=== PATIENT | male | born 1955 | race Caucasian/White ===

== ENCOUNTER 2017-05-17 09:09 | Day surgery (SDC) | payer OTHER ==
[2017-05-16 13:17] VITALS: BMI 30.7
--- NOTE | 2017-05-17 07:34 | HP ---
HISTORY OF PRESENT ILLNESS: Mr. Saavedra is a patient known to us for prior ACDF x2, now presents with c ontinued struggles with axial neck pain despite significant efforts with PT and other conservative th erapies. He is yet to yield any significant relief whatsoever and has not had a repeat CT scan of th e cervical spine revealing multilevel foraminal stenosis particularly to the right, which matches his neck pains between C2 through C5 move forward with surgical intervention given his extensive a nd exhaustive conservative treatments. PAST MEDICAL HISTORY: Hypertension, arthritis. CURRENT MEDICATIONS: Gabapentin, tramadol, Lawrence, lisinopril, statin, unspecified. PAST SURGICAL HISTORY: Four cervical neck surgeries including 2 anterior cervical diskectomy and fus ion. ALLERGIES: No known drug allergies. ASSESSMENT: Neck pain. PLAN: Dr. Dewey met with the patient, reviewed imaging and advocated for a right-sided C2 through C5 foraminotomies. He explained to the patient the risks, benefits, and alternatives to the procedure. The patient expressed understanding and would like to move forward surgery as discussed. The patie nt is mentally competent and capable of making medical decisions for himself, we will move forward [facility] as planned. Didier Ramos PA-C dictating for Dr. Dewey.
[2017-05-17 10:22] LABS: Hemoglobin 15.3 g/dL (14.0-18.0); Mean Corpuscular HGB CONC 33.4 g/dL (32.0-36.0); Mean Corpuscular Hemoglobin 29.9 pg (27.0-31.0); Mean Corpuscular Volume 89.6 fl (80.0-94.0); Mean Platelet Volume 7.8 fL (7.4-10.4); Platelet Count 287 thou/uL (130-400); RBC Distribution Width 12.2 % (11.5-14.5); Red Blood Cell (RBC) Count 5.13 mill/uL (4.70-6.10)
[2017-05-17 10:36] LABS: Anion Gap 8 mmol/L (10-20); BUN (Urea Nitrogen) 17 mg/dL (8.4-25.7); Calc. Creatinine Clearance 100 mL/min (70-130); Calcium 9.3 mg/dL (7.8-10.44); Carbon Dioxide 27 mmol/L (22-29); Chloride 107 mmol/L (98-107); Estimated GFR-MDRD 67; Glucose 92 mg/dL (70-105); Potassium 4.1 mmol/L (3.5-5.1); Sodium 138 mmol/L (136-145)
[2017-05-17] MEDS ORDERED: CEFAZOLIN/Water 2 GM/20 ML SYRINGE ONE ×2 (11:09→16:40)
[2017-05-17] MEDS ORDERED: Bupivacaine HCl 0.5%/Epinephrine 1:200,000/PF 30 ml Vial ONE (12:48)
[2017-05-17] MEDS ORDERED: Fentanyl 100 MCG/2 ML VIAL ONE ×2 (13:37→15:37)
[2017-05-17] MEDS ORDERED: Bacitracin Zinc Ointment 30 gm TUBE ONE (14:42)
[2017-05-17] MEDS ORDERED: Lidocaine 1% PF 5 ML VIAL ONE (15:21)
[2017-05-17] MEDS ORDERED: PROPOFOL 200 MG/20 ML VIAL ONE (15:21)
[2017-05-17] MEDS ORDERED: Glycopyrrolate 0.2 MG/ML 5 ML SYRINGE ONE (15:21)
[2017-05-17] MEDS ORDERED: Dexamethasone 20 MG/5 ML VIAL ONE (15:21)
[2017-05-17] MEDS ORDERED: ePHEDrine/0.9% NaCl/PF SYRINGE 50 mg/10 ml ONE (15:21)
[2017-05-17] MEDS ORDERED: Cyclobenzaprine 10 MG TAB ONE (16:01)
[2017-05-17] MEDS ORDERED: HYDROcodone/Acetaminophen 7.5/325 mg Tablet ONE (17:22)
--- NOTE | 2017-05-18 14:19 | OP ---
DATE OF PROCEDURE: 05/17/2017 SURGEON: Sanford Dewey M.D. SANDER AND POLISHER: Didier Ramos PA-C INDICATION: Pain. DIAGNOSIS: Cervical radiculopathy. PROCEDURE PERFORMED: Posterior cervical foraminotomy C2 through C5 on the right. ANESTHESIA: General. TECHNIQUE: The patient was brought into the operating room and placed under general anesthesia. He was flipped from a supine to prone position on the operating room table. A linear incision was plann ed spanning C2 through C5. After prepping and draping and after an appropriate pause, the incision w as created. The soft tissues were swept right of midline. A self-retaining retractor was put in the wound for optimal exposure. A high-speed cutting drill bit as well as 1 and 2 mm Kerrisons used to perform foraminotomies over the exiting nerve roots between C2 through C5. After decompressing these segments, the wound was irrigated. Hemostasis was maintained throughout. The wound was then closed in anatomic layers and a pressure dressing was applied. There were no known procedural complication s.
== END 2017-05-17 18:52 | disposition home or self-care (01) ==
LOC: SDC 09:09
PROVIDERS: ATTEND Neurological Surgery
PROC: 01N10ZZ Release Cervical Nerve, Open Approach (ICD-10-PCS; principal; 2017-05-17)
DX: M54.12 Radiculopathy, cervical region (principal); I10 Essential (primary) hypertension; M19.90 Unspecified osteoarthritis, unspecified site; E78.5 Hyperlipidemia, unspecified; J45.909 Unspecified asthma, uncomplicated; Z79.82 Long term (current) use of aspirin; Z79.891 Long term (current) use of opiate analgesic; Z79.899 Other long term (current) drug therapy; Z98.1 Arthrodesis status
CPT/HCPCS: 76001; 80048; 85027; 96374; J0670; J1100; J2001; J2704; J3010

== ENCOUNTER 2018-06-14 12:35 | Outpatient (CLI) | payer OTHER ==
--- NOTE | 2018-06-14 13:05 | RAD ---
LUMBAR SPINE THREE VIEWS: HISTORY: Lumbar radiculopathy. Back and right posterior thigh pain. FINDINGS: Five lumbar type vertebral bodies. In the neutral position, 3.6 mm of retrolisthesis of L3 upon L4. Retrolisthesis resolves upon flexion. Upon extension, 3.9 mm of retrolisthesis of L3 upon L4. In the neutral position, approximately 1 mm of anterolisthesis of L4 upon L5. Upon flexion, approxim ately 7 mm of anterolisthesis of L4 upon L5. Upon extension, spondylolisthesis resolves. There are hypertrophic changes in the posterior elements at L3, L4, and L5. No associated spondyloly sis. IMPRESSION: Spondylolisthesis, as described above. Greatest degree of motion is at the L4-L5 level, upon flexion . Transcribed Date/Time: 06/14/2018 1:05 PM
== END 2018-06-14 12:36 | disposition home or self-care (01) ==
LOC: TBSIIMAG 12:35
PROVIDERS: ATTEND Neurological Surgery
DX: M43.16 Spondylolisthesis, lumbar region (principal); M54.16 Radiculopathy, lumbar region
CPT/HCPCS: 72100

== ENCOUNTER 2018-08-17 05:56 | Day surgery (SDC) | payer OTHER ==
[2018-08-16 14:35] VITALS: BMI 30.5
--- NOTE | 2018-08-16 22:04 | HP ---
HISTORY OF PRESENT ILLNESS: Mr. Saavedra is a very pleasant 62-year-old man known to us for prior cervical surgery, who represents now with increasing lower back pain and right-sided partial S1 radiculopathies. On MRI scan, he has a mild grade 1 spondylolisthesis at L4-L5 with joint distraction and severe lateral recess stenosis bilaterally at this level. Motion films reveal significant instability at this level upon flexion and extension. He hopes to move forward to address this surgically. PAST MEDICAL HISTORY: Significant for hypertension and arthritis. CURRENT MEDICATIONS: 1. Gabapentin. 2. Tramadol. 3. Cartwright. 4. Lisinopril. 5. . PAST SURGICAL HISTORY: Five neck surgeries including to two ACDS. ALLERGIES: NO KNOWN DRUG ALLERGIES. ASSESSMENT: Lumbar back pain and radiculopathy with spondylolisthesis. PLAN: Dr. Dewey met with the patient, reviewed imaging and advocated for an L4-L5 decompression and fusion. He explained to the patient the risks, benefits, and alternatives to the procedure. The patient expressed understanding and elected to move forward with surgery as discussed. I do believe the patient is mentally competent and capable and is able to make medical decisions for himself. Job ID: [id number]
[2018-08-17] MEDS ORDERED: Bupivacaine HCl 0.5%/Epinephrine 1:200,000/PF 30 ml Vial ONE (06:22)
[2018-08-17] MEDS ORDERED: Thrombin 5000 UNITS/5 ML VIAL ONE (06:22)
[2018-08-17] MEDS ORDERED: Fentanyl 100 MCG/2 ML VIAL ONE ×2 (06:36→10:02)
[2018-08-17] MEDS ORDERED: Lidocaine 2% Jelly 5 ML TUBE ONE (06:51)
[2018-08-17 07:13] LABS: Anion Gap 10 mmol/L (10-20); BUN (Urea Nitrogen) 17 mg/dL (8.4-25.7); Calc. Creatinine Clearance 113 mL/min (70-130); Calcium 8.8 mg/dL (7.8-10.44); Carbon Dioxide 23 mmol/L (22-29); Chloride 109 mmol/L (98-107); Estimated GFR-MDRD 78; Glucose 94 mg/dL (70-105); Potassium 3.8 mmol/L (3.5-5.1); Sodium 138 mmol/L (136-145)
[2018-08-17 07:15] LABS: Hemoglobin 14.3 g/dL (14.0-18.0); Mean Corpuscular HGB CONC 32.9 g/dL (32.0-36.0); Mean Corpuscular Hemoglobin 29.1 pg (27.0-31.0); Mean Corpuscular Volume 88.5 fL (78.0-98.0); Platelet Count 257 thou/uL (130-400); RBC Distribution Width 12.1 % (11.5-14.5); Red Blood Cell (RBC) Count 4.92 mill/uL (4.70-6.10); White Blood Cell (WBC) Count 6.2 thou/uL (4.8-10.8)
[2018-08-17 07:30] LABS: Band 10 % (5-11); Eosinophils 4 % (0-10); Lymphocytes 34 % (21-51); MDiff Complete? YES; Metamyelocyte 1 % (0-0); Monocytes 6 % (0-10); Neutrophil 19 % (42-75); RBC Morphology Normal; Reactive Lymphocytes 25 % (0-10)
--- NOTE | 2018-08-17 10:05 | OP ---
DATE OF PROCEDURE: 08/17/2018 FOUNTAIN ATTENDANT: Didier Ramos PA-C INDICATION: Pain. DIAGNOSES: Lumbar spondylolisthesis with low back pain and lumbar radiculopathy. PROCEDURES PERFORMED: L4-L5 bilateral facetectomy, bilateral L4-L5 instrumented fusion, placement of allograft, and placement of autograft. ANESTHESIA: General. DESCRIPTION OF PROCEDURE: The patient was brought into the operating room, placed under general anesthesia. He was flipped from the supine to prone position on operating room table. A linear incision was planned over L4-L5. After prepping and draping and after an appropriate preoperative pause, the incision was created. The soft tissues were swept away from midline. Self-retaining retractors were placed in the wound for optimal exposure. After confirming the appropriate level with C-arm fluoroscopy, high-speed cutting drill bit as well as 3 and 4 mm Kerrisons used to perform facetectomies bilaterally at L4-L5. The lateral recesses and exiting nerve roots were well decompressed. With the aid of C-arm fluoroscopy, pedicle screws were placed. An intraoperative 3D CT scan was performed, which confirmed appropriate placement of hardware. Rods were then placed across the screw head and final tightened. Allograft and autograft material were placed in the lateral confines of the instrumentation construct. The wound was irrigated. Hemostasis was maintained throughout. The wound was then closed in anatomic layers and a pressure dressing was applied. There were no known procedural complications. Job ID: [id number]
[2018-08-17] MEDS ORDERED: HYDROcodone/Acetaminophen 5/325 mg Tablet ONE (10:56)
[2018-08-17] MEDS ORDERED: Ketorolac Tromethamine 30 MG/ML VIAL ONE (14:27)
[2018-08-17] MEDS ORDERED: ePHEDrine 50 MG/ML VIAL ONE (14:27)
[2018-08-17] MEDS ORDERED: Lidocaine 1% PF 5 ML VIAL ONE (14:27)
[2018-08-17] MEDS ORDERED: PROPOFOL 200 MG/20 ML VIAL ONE (14:27)
[2018-08-17] MEDS ORDERED: Rocuronium Bromide 10 MG/ML (10ML VIAL) ONE (14:27)
[2018-08-17] MEDS ORDERED: Ondansetron PF 4 MG/2 ML Vial ONE (14:27)
[2018-08-17] MEDS ORDERED: Glycopyrrolate 0.2 MG/ML 5 ML SYRINGE ONE (14:27)
[2018-08-17] MEDS ORDERED: Dexamethasone 20 MG/5 ML VIAL ONE (14:27)
--- NOTE | 2018-08-20 15:22 | EKG ---
Test Reason : PREOP Blood Pressure : / mmHG Vent. Rate : 053 BPM Atrial Rate : 053 BPM P-R Int : 178 ms QRS Dur : 092 ms QT Int : 440 ms P-R-T Axes : 000 014 030 degrees QTc Int : 412 ms Sinus bradycardia with Premature supraventricular complexes Otherwise normal ECG Confirmed by BRENTON SALAZAR ([id number]) on 08/20/2018 3:22:38 PM Referred By: ALTAF Confirmed By:BRENTON SALAZAR
== END 2018-08-17 11:40 | disposition home or self-care (01) ==
LOC: SDC 05:56
PROVIDERS: ATTEND Neurological Surgery
PROC: 0SG10AJ Fusion of 2 or more Lumbar Vertebral Joints with Interbody Fusion Device, Posterior Approach, Anterior Column, Open Approach (ICD-10-PCS; principal; 2018-08-17)
PROC: 0SG0071 Fusion of Lumbar Vertebral Joint with Autologous Tissue Substitute, Posterior Approach, Posterior Column, Open Approach (ICD-10-PCS; principal; 2018-08-17)
DX: M43.16 Spondylolisthesis, lumbar region (principal); M48.061 Spinal stenosis, lumbar region without neurogenic claudication; M54.16 Radiculopathy, lumbar region; I10 Essential (primary) hypertension; M19.90 Unspecified osteoarthritis, unspecified site; Z98.1 Arthrodesis status; Z79.82 Long term (current) use of aspirin; Z79.891 Long term (current) use of opiate analgesic; Z79.899 Other long term (current) drug therapy
CPT/HCPCS: 76000; 80048; 85025; 93005; 93010; C1713; J0131; J0670; J0690; J3010

== ENCOUNTER 2019-10-04 07:27 | Day surgery (SDC) | payer OTHER ==
[2019-10-02 10:55] VITALS: BMI 29.2
[2019-10-04] MEDS ORDERED: EPINEPHrine 1 MG/ML AMP ONE (08:18)
[2019-10-04] MEDS ORDERED: Bupivacaine PF 0.5% 30 ML VIAL ONE (08:18)
[2019-10-04] MEDS ORDERED: Thrombin 5000 UNITS/5 ML VIAL ONE (08:19)
[2019-10-04] MEDS ORDERED: Fentanyl 100 MCG/2 ML VIAL ONE ×3 (08:54→10:53)
[2019-10-04] MEDS ORDERED: Tamsulosin HCl 0.4 MG CAP ONE (10:53)
[2019-10-04] MEDS ORDERED: Rocuronium Bromide 10 MG/ML (10ML VIAL) ONE (11:36)
[2019-10-04] MEDS ORDERED: Dexamethasone 20 MG/5 ML VIAL ONE (11:36)
[2019-10-04] MEDS ORDERED: PROPOFOL 200 MG/20 ML VIAL ONE (11:36)
[2019-10-04] MEDS ORDERED: Ondansetron PF 4 MG/2 ML Vial ONE (11:36)
[2019-10-04] MEDS ORDERED: Glycopyrrolate 0.2 MG/ML 5 ML SYRINGE ONE (11:36)
[2019-10-04] MEDS ORDERED: EPHEDRINE 25 MG/5 ML SYRINGE ONE (11:36)
[2019-10-04] MEDS ORDERED: Ketorolac Tromethamine 30 MG/ML VIAL ONE (11:36)
[2019-10-04] MEDS ORDERED: Lidocaine 1% PF 5 ML VIAL ONE (11:36)
[2019-10-04] MEDS ORDERED: HYDROcodone/Acetaminophen 5/325 mg Tablet ONE (12:29)
--- NOTE | 2019-10-07 14:29 | OP ---
DATE OF PROCEDURE: 10/04/2019 LEGAL RECORDS MANAGER: Didier Ramos PA-C. INDICATION: Pain. DIAGNOSIS: Lumbar stenosis. PROCEDURES: Lumbar decompression at L3-4. ANESTHESIA: General. DESCRIPTION OF PROCEDURE: The patient was brought into the operating room and placed under general anesthesia. He was flipped from the supine to prone position on the operating room table. A linear incision was planned at the L3-4 segment which was adjacent to a prior fused site. After prepping and draping and after an appropriate preoperative pause, the incision was created. The soft tissues were swept away from midline. Self-retaining retractors were placed in the wound for optimal exposure. After confirming the appropriate level with C-arm fluoroscopy, high-speed cutting drill bit as well as 2, 3, and 4 mm Kerrisons were used to perform a laminectomy at the L3-4 interspace and to the lateral recesses and central canal are decompressed. The wound was then irrigated. Hemostasis was maintained throughout. The wound was then closed in anatomic layers and a pressure dressing was applied. There were no known procedural complications. Job ID: [id number]
--- NOTE | 2019-10-07 17:30 | EKG ---
Test Reason : PREOP Blood Pressure : / mmHG Vent. Rate : 053 BPM Atrial Rate : 053 BPM P-R Int : 178 ms QRS Dur : 090 ms QT Int : 436 ms P-R-T Axes : 008 030 049 degrees QTc Int : 409 ms Sinus bradycardia Otherwise normal ECG Confirmed by BEATRIZ BALLARD ([id number]) on 10/07/2019 5:29:59 PM Referred By: NATALIA Confirmed By:BEATRIZ BALLARD
== END 2019-10-04 13:05 | disposition home or self-care (01) ==
LOC: SDC 07:27
PROVIDERS: ATTEND Neurological Surgery
PROC: 01NB0ZZ Release Lumbar Nerve, Open Approach (ICD-10-PCS; principal; 2019-10-04)
DX: M48.061 Spinal stenosis, lumbar region without neurogenic claudication (principal); I10 Essential (primary) hypertension; E78.5 Hyperlipidemia, unspecified; J44.9 Chronic obstructive pulmonary disease, unspecified; Z79.01 Long term (current) use of anticoagulants; Z79.82 Long term (current) use of aspirin; Z79.899 Other long term (current) drug therapy; Z98.1 Arthrodesis status
CPT/HCPCS: 76000; 93005; 93010; J0171; J0690; J1100; J1885; J2405; J2704; J3010; S0020

== ENCOUNTER 2019-12-17 11:19 | Outpatient (CLI) | payer OTHER ==
--- NOTE | 2019-12-17 13:47 | RAD ---
LUMBAR SPINE THREE VIEWS: 12/17/19 INDICATION: History of radiculopathy to the right leg. COMPARISON: Prior exam dated 06/14/18. FINDINGS: Since the comparison examination, there has been interval performance of a posterolateral spinal fusi on of L4 to L5. There is grade I anterolisthesis of L4 on L5. The pedicle screws project in the expec lilly position. There is some mild peripedicular screw lucency involving the L5 level. The flexion exam ination and extension examination and neutral examination demonstrates stable grade I anterolisthesis at L4-5. There is stable retrolisthesis of L3 on L4. There is mild retrolisthesis of L2 on L3 that partially r educes with flexion and is somewhat accentuated with extension. There is some mild retrolisthesis of L1 on L2 with extension that reduces with neutral and flexion positioning. IMPRESSION: Interval postoperative changes of the lumbar spine. Some mild lucency surrounding the pedicle screws at L5. Early loosening cannot be entirely excluded. Continued radiographic follow-up is recommended. Grade I anterolisthesis of L4 on L5 does not appear appreciably changed from the comparison examinati on with no abnormal translational motion. The mild retrolisthesis of L3 on L4 is stable with flexion and extension. The mild retrolisthesis of L2 on L3 demonstrates some reduction with flexion and is somewhat accentua lilly with extension. There is retrolisthesis of L1 on L2 that is reduced on neutral and flexion positioning and somewhat a ccentuated with extension. POS: BH
== END 2019-12-17 11:20 | disposition home or self-care (01) ==
LOC: TBSIIMAG 11:19
PROVIDERS: ATTEND Neurological Surgery
DX: M54.5 Low back pain (principal); M43.16 Spondylolisthesis, lumbar region; R93.7 Abnormal findings on diagnostic imaging of other parts of musculoskeletal system; Z98.1 Arthrodesis status
CPT/HCPCS: 72100

== ENCOUNTER 2020-03-27 05:47 | Day surgery (SDC) | payer OTHER ==
[2020-03-25 15:19] VITALS: BMI 30.7
[2020-03-27] MEDS ORDERED: XYLOCAINE 2%-EPI 1:100,000 20 ML VIAL ONE (06:24)
[2020-03-27] MEDS ORDERED: Thrombin 5000 UNITS/5 ML VIAL ONE (06:24)
[2020-03-27] MEDS ORDERED: Bupivacaine PF 0.5% 30 ML VIAL ONE (06:24)
[2020-03-27] MEDS ORDERED: EPINEPHrine 1 MG/ML AMP ONE (06:24)
[2020-03-27 07:05] LABS: SARS-CoV-2 NAA Rapid Test Not Detected (NotDetected)
[2020-03-27] MEDS ORDERED: Fentanyl 100 MCG/2 ML VIAL ONE (07:06)
[2020-03-27] MEDS ORDERED: Ondansetron PF 4 MG/2 ML Vial ONE (09:32)
[2020-03-27] MEDS ORDERED: Rocuronium Bromide 10 MG/ML (10ML VIAL) ONE (09:32)
[2020-03-27] MEDS ORDERED: Lidocaine 1% PF 5 ML VIAL ONE (09:32)
[2020-03-27] MEDS ORDERED: ePHEDrine 50 MG/ML VIAL ONE (09:32)
[2020-03-27] MEDS ORDERED: Dexamethasone 20 MG/5 ML VIAL ONE (09:32)
[2020-03-27] MEDS ORDERED: Glycopyrrolate 0.2 MG/ML 5 ML SYRINGE ONE (09:32)
[2020-03-27] MEDS ORDERED: PROPOFOL 200 MG/20 ML VIAL ONE (09:32)
[2020-03-27] MEDS ORDERED: Ketorolac Tromethamine 30 MG/ML VIAL ONE (09:32)
[2020-03-27] MEDS ORDERED: Tamsulosin HCl 0.4 MG CAP ONE (10:46)
--- NOTE | 2020-03-27 10:46 | OP ---
DATE OF PROCEDURE: 03/27/2020 MOLD MAKING SUPERVISOR: Didier Ramos PA-C INDICATION: Pain. DIAGNOSIS: Lumbar spondylolisthesis. PROCEDURE PERFORMED: Exploration of fusion, removal of posterior segmental instrumentation, extension of fusion to L3, placement of new ceci across nonsegmental segments spanning L3 through L5, placement of allograft, placement of autograft, placement of cross-link. ANESTHESIA: General. DESCRIPTION OF PROCEDURE: The patient was brought into the operating room and placed under general anesthesia. He was flipped from the supine to prone position on the operating room table. A linear incision was planned at the location of a prior incision. After prepping and draping and after an appropriate preoperative pause, the incision was created. The soft tissues were swept away from midline. Self-retaining retractors were placed for optimal exposure. After confirming appropriate level with C-arm fluoroscopy, the facet joints at the L3-L4 interface were completely removed in order to decompress the lateral recesses as well as identify the L3 pedicles. Pedicle screws were placed at L3 bilaterally with the aid of intraoperative C-arm imaging. Intraoperative 3D CT scan was performed to confirm placement of hardware. Rods were then placed across all three screws on both sides and final tightened with set screws. Allograft and autograft material were placed within the lateral confines the instrumentation construct. The wound was then irrigated. Hemostasis was maintained throughout. The wound was then closed in anatomic layers, and a pressure dressing was applied. There were no known procedural complications. Job ID: [id number]
[2020-03-27] MEDS ORDERED: HYDROcodone/Acetaminophen 10/325 mg Tablet ONE (12:21)
[2020-03-27] MEDS ORDERED: Cyclobenzaprine 10 MG TAB ONE (12:21)
== END 2020-03-27 13:10 | disposition home or self-care (01) ==
LOC: SDC 05:47
PROVIDERS: ATTEND Neurological Surgery
PROC: 0ST20ZZ Resection of Lumbar Vertebral Disc, Open Approach (ICD-10-PCS; principal; 2020-03-27)
PROC: 0SG00AJ Fusion of Lumbar Vertebral Joint with Interbody Fusion Device, Posterior Approach, Anterior Column, Open Approach (ICD-10-PCS; principal; 2020-03-27)
DX: M43.16 Spondylolisthesis, lumbar region (principal); M51.36 Other intervertebral disc degeneration, lumbar region; I10 Essential (primary) hypertension; E78.5 Hyperlipidemia, unspecified; J44.9 Chronic obstructive pulmonary disease, unspecified; Z79.01 Long term (current) use of anticoagulants; Z79.82 Long term (current) use of aspirin; Z79.899 Other long term (current) drug therapy; Z20.822 Contact with and (suspected) exposure to COVID-19
CPT/HCPCS: 76000; C1713; C1768; J0171; J0690; J1100; J1885; J2405; J2704; J3010; J3490; S0020; U0002

== ENCOUNTER 2022-11-22 12:12 | Outpatient (CLI) | payer MEDICARE, OTHER | END 2022-11-22 12:13 | disposition home or self-care (01) | LOC: SCSCT 12:12 | PROVIDERS: ATTEND Neurological Surgery | DX: M47.22 Other spondylosis with radiculopathy, cervical region (principal); M48.02 Spinal stenosis, cervical region; Z98.1 Arthrodesis status | CPT/HCPCS: 72125 ==

== ENCOUNTER 2022-12-12 06:32 | Day surgery (SDC) | payer MEDICARE, OTHER ==
[2022-12-08 13:05] VITALS: BMI 30.7
[2022-12-12] MEDS ORDERED: Rocuronium Bromide 50 MG/5 ML VIAL ONE (07:56)
[2022-12-12] MEDS ORDERED: PROPOFOL 20 ML ONE (07:56)
[2022-12-12 08:01] LABS: #Basophils 0.1 thou/uL (0.0-0.2); #Eosinphils 0.2 thou/uL (0.0-0.7); #Monocytes 0.7 thou/uL (0.11-0.59); #Neutrophils 2.4 thou/uL (1.40-6.50); %Basophils 1.2 % (0.0-1.0); %Eosinophils 3.9 % (0.0-10.0); %Lymphocytes 43.4 % (21.0-51.0); %Monocytes 11.4 % (0.0-10.0); %Neutrophils 39.9 % (42.0-75.0); Hemoglobin 14.6 g/dL (14.0-18.0); Mean Corpuscular Hemoglobin 29.5 pg (27.0-31.0); Mean Corpuscular Volume 86.9 fl (78.0-98.0); Mean Platelet Volume 9.9 fL (7.4-10.4); Platelet Count 266 10x3/uL (130-400); RBC Distribution Width 12.7 % (11.5-14.5); Red Blood Cell (RBC) Count 4.95 mill/uL (4.70-6.10)
[2022-12-12 08:53] LABS: Anion Gap 11 mmol/L (10-20); BUN (Urea Nitrogen) 16 mg/dL (8.4-25.7); Calc. Creatinine Clearance 106 mL/min (70-130); Calcium 8.8 mg/dL (7.8-10.44); Carbon Dioxide 24 mmol/L (23-31); Chloride 108 mmol/L (98-107); Estimated GFR 86; Glucose 97 mg/dL (80-115); Potassium 3.9 mmol/L (3.5-5.1); Sodium 139 mmol/L (136-145)
[2022-12-12] MEDS ORDERED: EPINEPHrine 1 MG/ML VIAL ONE (09:01)
[2022-12-12] MEDS ORDERED: Thrombin 5000 UNITS/5 ML VIAL ONE (09:01)
[2022-12-12] MEDS ORDERED: Bupivacaine PF 0.5% 30 ML VIAL ONE (09:01)
[2022-12-12] MEDS ORDERED: Fentanyl 250 MCG/5 ML VIAL ONE (09:12)
[2022-12-12] MEDS ORDERED: CEFAZOLIN 2 GM VIAL ONE ×2 (09:16→13:01)
[2022-12-12] MEDS ORDERED: Sodium Chloride 0.9% 100 ML ONE ×2 (09:17→13:01)
[2022-12-12] MEDS ORDERED: Ondansetron PF 4 MG/2 ML Vial ONE (09:28)
[2022-12-12] MEDS ORDERED: Rocuronium Bromide 10 MG/ML (10ML VIAL) ONE (09:28)
[2022-12-12] MEDS ORDERED: Dexamethasone 20 MG/5 ML VIAL ONE (09:28)
[2022-12-12] MEDS ORDERED: ePHEDrine Sulfate 50 MG/10 ML VIAL ONE (09:28)
[2022-12-12] MEDS ORDERED: PROPOFOL 200 MG/20 ML VIAL ONE (09:28)
[2022-12-12] MEDS ORDERED: NEOSTIGMINE 3 MG/3 ML SYR 3 MG/3 ML SYRINGE ONE (09:28)
[2022-12-12] MEDS ORDERED: Lidocaine 1% PF 5 ML VIAL ONE (09:28)
[2022-12-12] MEDS ORDERED: Glycopyrrolate 0.2 MG/ML 5 ML SYRINGE ONE (09:28)
[2022-12-12] MEDS ORDERED: Tamsulosin HCl 0.4 MG CAP ONE (11:23)
[2022-12-12] MEDS ORDERED: Cyclobenzaprine 10 MG TAB ONE (11:25)
[2022-12-12] MEDS ORDERED: fentaNYL PF 100 MCG/2 ML SYRINGE ONE (11:29)
[2022-12-12] MEDS ORDERED: HYDROcodone/Acetaminophen 5/325 mg Tablet ONE (12:34)
== END 2022-12-12 13:45 | disposition home or self-care (01) ==
LOC: SDC 06:32
PROVIDERS: ATTEND Neurological Surgery
PROC: 01N Peripheral Nervous System, Release (ICD-10-PCS; principal; 2022-12-12)
DX: M54.12 Radiculopathy, cervical region (principal); E87.5 Hyperkalemia; G89.4 Chronic pain syndrome; I11.0 Hypertensive heart disease with heart failure; J45.909 Unspecified asthma, uncomplicated; Z98.890 Other specified postprocedural states
CPT/HCPCS: 63045; 63048 ×2; 80048; 85025; 93005; C1713; J0171; 93010; J1100; J2405; J2704; J3010; J3490; S0020